=== PATIENT | female | born 1955 | race Caucasian/White ===

== ENCOUNTER 2024-12-06 19:20 | Emergency (ER) | payer MEDICARE, MEDICAID ==
[~2024-12-06] VITALS: Ht 170.2 cm; Wt 81.8 kg
[2024-12-06 19:31] VITALS: BP 128/71; PULSE 91; RESP 20; TEMP 98.4; O2SAT 100
[2024-12-06] MEDS ORDERED: NYST100033 PO (19:37)
[2024-12-06] MEDS: NYSTATIN 500,000 UNITS/5 ML SUSPENSION UDCUP PO ONE (19:44)
== END 2024-12-06 19:58 | disposition home or self-care (01) ==
LOC: EMS 19:20
DX: A05.9 Bacterial foodborne intoxication, unspecified (principal)
CPT/HCPCS: 99283